=== PATIENT | female | born 1970 ===

== ENCOUNTER 2025-01-30 08:30 | Inpatient (IN) | payer OTHER ==
[~2025-01-30] VITALS: Ht 162.6 cm; Wt 68.5 kg
[2025-01-30] MEDS ORDERED: METFORMIN HCL500 M3 PO (09:25)
[2025-01-30] MEDS ORDERED: GLIPIZIDE XL5 MG PO (09:25)
[2025-01-30] MEDS ORDERED: SEMAGLUTID0.5 MG/0.1 (09:28)
[2025-01-30 09:44] VITALS: BP 127/79
[2025-01-30 10:01] LABS: URINE APPEARANCE Clear; URINE BILIRRUBIN Negative (NEGATIVE); URINE BLOOD Negative; URINE COLOR Yellow; URINE GLUCOSE Negative (NEGATIVE); URINE KETONE Negative (NEGATIVE); URINE LEUKOCYTE Negative; URINE NITRATE Negative; URINE PROTEIN Negative (NEGATIVE); URINE UROBILINOGEN 0.2 E.U./dl
[2025-01-30 10:04] LABS: URINE BACTERIA 39.1 uL (0.0-1933); URINE EPITHELIAL CELLS 4.5 uL (0.0-38.8)
[2025-01-30 10:15] LABS: INR 1.03; PARTIAL THROMBOPLASTIN TIME 30.7 SECONDS (22.0-34.0); PROTHROMBIN TIME 11.2 SECONDS (9.0-11.5)
[2025-01-30 10:21] LABS: URINE RBC 0.4 uL (0.0-20.8); URINE WBC 0.7 uL (0.0-23.2)
[2025-01-30 10:24] LABS: COVID-19 AG NEGATIVE (NEGATIVE)
[2025-01-30 10:24] LABS: RED BLOOD COUNT 4.69 M/uL (3.93-5.22)
[2025-01-30 10:25] LABS: BASO % 0.6 % (0.1-1.2); EOS # 0.17 (0.04-0.54); EOS % 2.5 % (0.7-7.0); LYMPH # 1.91 (1.18-3.74); LYMPH % 27.7 % (19.3-53.1); MEAN CORPUSCULAR HEMOGLOBIN 27.5 pg (25.6-32.2); MONO # 0.53 (0.24-0.82); MONO % 7.7 % (4.7-12.5); NEUT % 60.9 % (34.0-71.1); PLATELET COUNT 372 K/uL (163-369); RED CELL DISTRIBUTION WIDTH 14.6 % (11.6-14.4)
[2025-01-30 10:26] LABS: HEMOGLOBIN 12.9 g/dL (11.2-15.7)
[2025-01-30 10:33] LABS: ALBUMIN 3.7 gm/dL (3.4-5.0); BILIRUBIN TOTAL 0.76 mg/dL (0.3-1.2); CALCIUM 9.1 mg/dL (8.5-10.1); CREATININE SERUM 0.73 mg/dL (0.55-1.02); GFR 82.47; GLOBULINA 3.7 G/DL (2.4-3.5); POTASSIUM 4.72 mEq/L (3.5-5.1); TOTAL PROTEIN 7.4 gm/dL (6.4-8.2)
[2025-02-07] MEDS ORDERED: CEFAZOLIN SODIUM 1,000 MG VIAL IV SCH ×2 (05:00→17:00)
[2025-02-07] MEDS ORDERED: CEFAZOLIN SODIUM 1,000 MG VIAL ONE (07:20)
[2025-02-07] MEDS ORDERED: POVIDONE-IODINE 118 ML BOTT TOP SCH (08:45)
[2025-02-07] MEDS ORDERED: MORPHINE SULFATE 4 MG/ML VIAL IV ONE ×2 (10:05→10:50)
[2025-02-07] MEDS ORDERED: RINGERS SOLUTION,LACTATED 1,000 ML IV SCH (11:00)
[2025-02-07] MEDS ORDERED: MORPHINE SULFATE 2 MG/ML CARTRIDGE IV SCH (13:00)
[2025-02-07 13:13] VITALS: BP 145/80
[2025-02-07 16:05] VITALS: BP 147/84
[2025-02-07] MEDS ORDERED: ONDANSETRON HCL 2 MG/ML VIAL IV SCH (17:00)
[2025-02-07] MEDS ORDERED: INSULIN LISPRO 1,000 UNIT/10 ML UNITS SUBCUTANEO PRN (18:15)
[2025-02-07] MEDS ORDERED: DEXTROSE 50 % IN WATER 0.5 G/ML VIAL IV PRN (18:15)
[2025-02-07] MEDS ORDERED: PANTOPRAZOLE SODIUM 40 MG/VIAL VIAL IV PUSH STA (18:21)
[2025-02-07] MEDS ORDERED: KETOROLAC TROMETHAMINE 30 MG VIAL ONE (20:12)
[2025-02-07 20:58] VITALS: BP 150/80
[2025-02-08] MEDS ORDERED: KETOROLAC TROMETHAMINE 30 MG VIAL IV SCH
[2025-02-08 01:41] VITALS: BP 120/62
[2025-02-08 08:00] VITALS: BP 139/80
[2025-02-08] MEDS ORDERED: PANTOPRAZOLE SODIUM 40 MG TABLET.DR PO SCH (09:00)
[2025-02-08] MEDS ORDERED: KETOROLAC TROMETHAMINE 10 MG TABLET PO SCH ×3 (09:00→13:00)
[2025-02-08] MEDS ORDERED: BISACODYL 5 MG TABLET.EC PO NR (09:00)
[2025-02-08] MEDS ORDERED: IBUprofen 800 MG TABLET PO SCH (13:00)
[2025-02-08] MEDS ORDERED: ACETAMINOPHEN 500 MG GEL..CAP PO SCH (14:00)
[2025-02-08 16:10] VITALS: BP 121/77
[2025-02-09 01:51] VITALS: BP 128/73
[2025-02-09 08:00] VITALS: BP 139/80
== END 2025-02-09 09:36 | disposition home or self-care (01) | DRG 743 ==
LOC: O/R 02-07 05:09 → SURH 02-07 08:30 → OB/GYN 02-07 11:30 → SURH 02-07 13:15 → OB/GYN 02-09 09:36
PROVIDERS: ADMIT Obstetrics & Gynecology; ATTEND Obstetrics & Gynecology
PROC: 0UN00ZZ Release Right Ovary, Open Approach (ICD-10-PCS; 2025-02-07)
PROC: 0UN50ZZ Release Right Fallopian Tube, Open Approach (ICD-10-PCS; 2025-02-07)
PROC: 0DN80ZZ Release Small Intestine, Open Approach (ICD-10-PCS; 2025-02-07)
PROC: 0UT90ZZ Resection of Uterus, Open Approach (ICD-10-PCS; principal; 2025-02-07 13:15)
DX: D25.1 Intramural leiomyoma of uterus (principal); D25.2 Subserosal leiomyoma of uterus; D25.0 Submucous leiomyoma of uterus; N80.03 Adenomyosis of the uterus; N84.0 Polyp of corpus uteri; N73.6 Female pelvic peritoneal adhesions (postinfective)